=== PATIENT | male | born 1945 | race Caucasian/White ===

== ENCOUNTER 2017-01-15 19:43 | Emergency (ER) | payer OTHER ==
[~2017-01-15] VITALS: Ht 182.9 cm; Wt 96.7 kg
[~2017-01-15 19:43] MED LIST: ACYC200C; ALAV10TA PO; AMLO5TAB22 PO; BENT20TA PO; HYDR200T3 PO; LEVO75TA3 PO; LISI-357 PO; OMEP20TA39 PO; SIMV40TA PO; TEMA15CA PO; TEST1.622 TD; TYLE500T PO; ULTR50TA PO
[2017-01-15 19:57] VITALS: BP 163/88; PULSE 82; RESP 18; TEMP 97.8; O2SAT 97
[2017-01-15 20:14] VITALS: BP 151/93; PULSE 74; RESP 18; O2SAT 98
[2017-01-15] MEDS ORDERED: TETANUS/DIPHTHERIA TOXOID ADULT 0.5 ML VIAL IM ONE (21:00)
--- NOTE | 2017-01-15 21:04 | PD ---
HPI Chief Complaint: Injury Time Seen by Provider: 20:52 Travel History International Travel<30 days: No Contact w/Intl Traveler<30days: No Traveled to known affect area: No History of Present Illness HPI 71-year-old male complains of abrasion to right side of the forehead, right shoulder pain, right elbow pain, right foot pain. Patient fell off the ladder today. Patient denies loss of consciousness. Patient denies any headache or neck pain. Patient denies any chest pain or shortness of breath. Patient denies abdominal pain. Patient denies any back pain. Patient complains aching pain right shoulder, right elbow and more sharp pain to the right foot. Patient denies any focal weakness or numbness of the extremity. Patient's not up-to-date with TD booster. PFSH Past Medical History Cardiovascular Problems: Yes (HTN, Cholesterol) GERD: Yes Thyroid Disease: Yes Influenza Vaccination: Yes Social History Tobacco Use: No Substance Use: No Allergies-Medications (Allergen,Severity, Reaction): Coded Allergies: No Known Allergies (Unverified , 01/15/17) Reported Meds & Prescriptions Reported Meds & Active Scripts Active Reported Androgel (Testosterone) 1.62 % Gel 1.62 % TD Hydroxychloroquine Sulfat (Hydroxychloroquine Sulfate) 200 Mg Tab 200 Mg PO DAILY Lisinopril 5 mg (Lisinopril) 5 Mg Tab 1 Tab PO DAILY Ultram (Tramadol HCl) 50 Mg Tab 50 Mg PO Q6 PRN Tylenol (Acetaminophen) 500 Mg Tab 500 Mg PO BID Alavert (Loratadine) 10 Mg Tab 10 Mg PO Acyclovir 200 mg (Acyclovir) 200 Mg Cap Temazepam 15 Mg Cap 15 Mg PO HS Simvastatin 40 Mg Tab 1 Tab PO HS Amlodipine Besylate 5 mg (Amlodipine Besylate) 5 Mg Tab 1 Tab PO DAILY Bentyl (Dicyclomine HCl) 20 Mg Tab 20 Mg PO TID Hm Omeprazole (Omeprazole) 20 Mg Tab 20 Mg PO BID Levothyroxine 75 mcg (Levothyroxine Sodium) 75 Mcg Tab 1 Tab PO DAILY Review of Systems General / Constitutional: No: Fever Eyes: No: Visual changes HENT: No: Headaches Cardiovascular: No: Chest Pain or Discomfort Respiratory: No: Shortness of Breath Gastrointestinal: No: Abdominal Pain Genitourinary: No: Dysuria Musculoskeletal: Positive: Pain Skin: No Rash Neurologic: No: Weakness Psychiatric: No: Depression Endocrine: No: Polydipsia Hematologic/Lymphatic: No: Easy Bruising Physical Exam Narrative GENERAL: Well-nourished, well-developed patient. SKIN: Focused skin assessment warm/dry. HEAD: Normocephalic. Small abrasion to right forehead area with some mild ecchymosis noted. No active bleeding. EYES: No scleral icterus. No injection or drainage. Pupils 2 mm equal reactive. NECK: Supple, trachea midline. No JVD or lymphadenopathy. No neck tenderness. CARDIOVASCULAR: Regular rate and rhythm without murmurs, gallops, or rubs. RESPIRATORY: Breath sounds equal bilaterally. No accessory muscle use. GASTROINTESTINAL: Abdomen soft, non-tender, nondistended. MUSCULOSKELETAL: Mild diffuse tenderness of the right shoulder joint, right elbow joint. Full range of motion the right shoulder and right elbow. Ecchymosis swelling tenderness dorsal aspect of the foot especially over the fourth and fifth metatarsals. Full range motion of the toes. BACK: Nontender without obvious deformity. No CVA tenderness. Neurologic exam normal. Data Data Last Documented VS Vital Signs Date Time Temp Pulse Resp B/P (MAP) Pulse Ox O2 Delivery O2 Flow Rate FiO2 01/15/17 21:33 72 16 155/97 (116) 97 01/15/17 20:14 Room Air 01/15/17 19:57 97.8 Orders Orders Tetanus/Diphtheria Tox Adult (Tetanus/Di (01/15/17 21:00) Elbow, Complete (4 Vws) (01/15/17 20:58) Foot, Complete ([id number]) (01/15/17 20:58) Shoulder, Limited(2vws) (01/15/17 20:58) Lidocaine 1% Inj (50 Ml) (Xylocaine 1% I (01/15/17 22:00) Splint Or Brace Apply/Monitor (01/15/17 21:49) Crutches (01/15/17 21:49) Toe (Min 2vws) (01/15/17 22:08) MDM Medical Decision Making Medical Screen Exam Complete: Yes Emergency Medical Condition: Yes Interpretation(s) Last Impressions Foot X-Ray 01/15/172057 Signed Impressions: Service Date/Time: Friday, January 15, 2017 21:12 - CONCLUSION: 1. Comminuted distal shaft fracture of the fourth metacarpal with one shaft width of lateral displacement. 2. Lateral dislocation of the third metacarpophalangeal joint. Gaurav Wilson MD Differential Diagnosis Differential diagnosis including contusion, fracture, dislocation. Narrative Course 71-year-old male complains of shoulder pain, right elbow pain, right foot pain. Status post fall. Patient has a small abrasion the right forehead. TD booster given. I spoke with Dr. Art Ochoa. Referred patient to purchasing expeditor Dr. Groves. I spoke with Dr. Groves. Will follow-up with the patient in the office. Posterior short-leg splint and crutches given. Procedures Procedure Narrative Reduction of right third toe dislocation. 1% lidocaine digital block right third toe. Traction was applied to right third toe and toe dislocation was reduced without any problem. Posterior short- leg splint and crutches given. Diagnosis Primary Impression: Fracture of fourth metatarsal bone of right foot Qualified Codes: S92.341A - Displaced fracture of fourth metatarsal bone, right foot, initial encounter for closed fracture Additional Impression: Dislocation of third toe, right, closed Qualified Codes: S93.104A - Unspecified dislocation of right toe(s), initial encounter Patient Instructions: General Instructions Additional Instructions: Hydrocodone as needed for pain. Keep foot elevated. Follow-up with purchasing expeditor. Med/Other Pt SpecificInfo: Prescription(s) given Scripts Hydrocodone-Acetaminophen ([place]) 5-325 mg Tab 1 TAB PO Q6H Y for PAIN, #30 TAB 0 Refills Prov: Rubin Morris MD 01/15/17 Disposition: 01 DISCHARGE HOME Condition: Stable Rubin Morris MD Jan 15, 2017 21:04
--- NOTE | 2017-01-15 21:30 | RADRPT ---
EXAM DATE/TIME: 01/15/2017 21:12 CORRECTION Corrected on: January 15, 2017; [facility] COMPARISON: No previous studies available for comparison. INDICATIONS : Right foot pain post fall off a ladder. MEDICAL HISTORY : None. SURGICAL HISTORY : None. ENCOUNTER: Initial ACUITY: 1 day PAIN SCORE: 8/10 LOCATION: Right foot. FINDINGS: There is a comminuted fracture in the distal shaft region of the fourth metatarsal. Approximately one shaft width of lateral displacement noted. The third metatarsophalangeal joint is laterally dislocated. I don't see an associated fracture. CONCLUSION: 1. Comminuted distal shaft fracture of the fourth metatarsal l with one shaft width of lateral displa cement. 2. Lateral dislocation of the third metatarsophalangeal joint. Gaurav Wilson MD on January 15, 2017 at 21:27 Board Certified Radiologist. This report was verified electronically. Gaurav Wilson MD on January 15, 2017 at 22:39 Board Certified Radiologist. This report was verified electronically.
[2017-01-15 21:33] VITALS: BP 155/97; PULSE 72; RESP 16; O2SAT 97
--- NOTE | 2017-01-15 21:37 | RADRPT ---
EXAM DATE/TIME: 01/15/2017 21:16 [facility] COMPARISON: No previous studies available for comparison. INDICATIONS : Right elbow pain post fall off a ladder. MEDICAL HISTORY : None. SURGICAL HISTORY : None. ENCOUNTER: Initial ACUITY: 1 day PAIN SCORE: 6/10 LOCATION: Right elbow. FINDINGS: No perceptible acute fracture or subluxation of the right elbow. 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 Probably a few osteochondral bodies posteriorly of the humeral ulnar compartment. No perceptible joint effusion. CONCLUSION: No fracture or subluxation seen of the right elbow. Moderate to severe osteoarthritis. Gaurav Wilson MD on January 15, 2017 at 21:35 Board Certified Radiologist. This report was verified electronically.
--- NOTE | 2017-01-15 21:39 | RADRPT ---
EXAM DATE/TIME: 01/15/2017 21:12 [facility] COMPARISON: No previous studies available for comparison. INDICATIONS : Right shoulder pain post fall off a ladder. MEDICAL HISTORY : None. SURGICAL HISTORY : None. ENCOUNTER: Initial ACUITY: 2 days PAIN SCORE: 6/10 LOCATION: Right shoulder. FINDINGS: Two view examination of the right shoulder demonstrates no evidence of fracture or dislocation. The glenohumeral and acromioclavicular joints are maintained. Bony mineralization is normal. CONCLUSION: Intact right shoulder. Gaurav Wilson MD on January 15, 2017 at 21:37 Board Certified Radiologist. This report was verified electronically.
[2017-01-15] MEDS ORDERED: LIDOCAINE HCL 1% 50 ML VIAL INFIL ONE (22:00)
[2017-01-15] MEDS ORDERED: NORC5TAB PO (22:25)
[2017-01-15] MEDS ORDERED: ACETAMINOPHEN/HYDROcodone 325 MG/5 MG TAB PO ONE (22:30)
--- NOTE | 2017-01-15 22:40 | RADRPT ---
EXAM DATE/TIME: 01/15/2017 22:14 [facility] COMPARISON: FOOT RIGHT COMPLETE ([id number]), January 15, 2017, 21:12. INDICATIONS : Post reduction third digit. MEDICAL HISTORY : None. SURGICAL HISTORY : None. ENCOUNTER: Initial ACUITY: 1 day PAIN SCORE: 0/10 LOCATION: Right foot, third digit. FINDINGS: Previously seen dislocation of the third metatarsophalangeal joint has been reduced into normal align ment. No associated fracture seen. The known fracture of the distal shaft of the fourth metacarpal is partly included on the study. CONCLUSION: Previously seen dislocation of the third metatarsophalangeal joint has been reduced into normal align ment. Gaurav Wilson MD on January 15, 2017 at 22:37 Board Certified Radiologist. This report was verified electronically.
[2017-01-15 22:58] VITALS: BP 169/96
[2017-01-16] MEDS ORDERED: FOLI400T PO (00:43)
[2017-01-16] MEDS ORDERED: TAMS0.4C4 PO (00:43)
[2017-01-16] MEDS ORDERED: AMLO5TAB2 PO (00:43)
[2017-01-16] MEDS ORDERED: CYAN100025 SL (00:43)
[2017-01-16] MEDS ORDERED: OMEP20TA PO (00:43)
[2017-01-16] MEDS ORDERED: TIZA4CAP3 PO (00:43)
[2017-01-16] MEDS ORDERED: BACL10TA PO (00:43)
[2017-01-16] MEDS ORDERED: PRAV40TA2 PO (00:43)
[2017-01-16] MEDS ORDERED: CHOL1CAP6 PO (00:43)
[2017-01-16] MEDS ORDERED: HYDR200T3 PO (00:43)
[2017-01-16] MEDS ORDERED: LEVO50TA4 PO (00:43)
[2017-01-16] MEDS ORDERED: TRAZ50TA12 PO (00:43)
[2017-01-16] MEDS ORDERED: LOSA25TA PO (00:43)
[2017-01-16] MEDS ORDERED: ACYC200C66 PO (00:43)
== END 2017-01-15 23:15 | disposition home or self-care (01) ==
LOC: PHED 19:43
DX: S92.341A Displaced fracture of fourth metatarsal bone, right foot, initial encounter for closed fracture (principal); S93.104A Unspecified dislocation of right toe(s), initial encounter; S00.81XA Abrasion of other part of head, initial encounter; M25.511 Pain in right shoulder; M25.521 Pain in right elbow; I10 Essential (primary) hypertension; E07.9 Disorder of thyroid, unspecified; W11.XXXA Fall on and from ladder, initial encounter; Z23 Encounter for immunization; Z86.79 Personal history of other diseases of the circulatory system; Z87.19 Personal history of other diseases of the digestive system
CPT/HCPCS: 28660; 73030; 73080; 73630; 73660; 90471; 90714; 99284; E0113